=== PATIENT | female | born 1935 | race Caucasian/White ===

== ENCOUNTER 2023-07-09 10:06 | Emergency (ER) | payer MEDICARE, SELFPAY ==
--- NOTE | 2023-07-09 10:00 | DI.RAD_ITS ---
Exam(s) XR WRIST LT COMPLETE EXAM: XR WRIST LT COMPLETE CLINICAL HISTORY: Left wrist pain status post fall. TECHNIQUE: 2D digital imaging was performed. Three views. COMPARISON: No exams were available for comparison FINDINGS: BONES: A nondisplaced fracture is seen extending transversely through the distal radial metaphysis. No visible separation at the articular surface. No significant angulation. The distal ulna and carp al bones appear intact. No bony destructive lesion is seen. The bones appear osteopenic. JOINTS: The carpal bones are normally aligned. Degenerative changes in the carpal region, greatest at the 1st carpal metacarpal joint. SOFT TISSUE: swelling around the wrist. IMPRESSION: Nondisplaced distal radial fracture DATA REPOSITORY: RADIATION DOSE DELIVERED:
--- NOTE | 2023-07-09 10:08 | W.ED.GENAD ---
Discharge Plan Disposition Patient Disposition: Home Discharge Details Clinical Impression: Closed fracture of distal end of left radius Primary Care Provider: None,None ED Provider: Fredy Bob Home Meds and New Rx's Prescriptions: New tramadol 50 mg tablet 50 mg PO QHS Qty: 3 0RF Discharge Instructions Instructions: Wrist Fracture in Adults (ED) Additional Instructions: Please read all of the information that accompanies these instructions. You were seen in the emergency department for your wrist pain. You are found to have a wrist fracture. The orthopedic team will call you for follow-up in 1 week. Please return to the emergency department if numbness or tingling in her hand or loose feeling completely in her hand. For your pain please take medications as follows: 1. Take acetaminophen (Tylenol), 1,000 mg (two 500 mg tabs) every 8 hours You have also received a prescription for tramadol which you should take in the evening as needed. Medical Decision Making This is an overall very well-appearing normothermic and not tachycardic znceu-fslk-klqimpif female with left wrist pain swelling concerning for fracture for which patient will undergo plain films. Patient is not wearing any rings at the moment on her left hand. She had no preceding chest pain dizziness or shortness of breath and given his syncope will defer secondary evaluation at this point time. She did not hit her head so no indication for CT head. She has not been nauseous nor vomiting so my suspicion for any acute electrolyte abnormalities is exceedingly low so we will defer laboratory evaluation. Per Nexus criteria, cervical CT not obtained. The patient had no c-spine midline tenderness, no evidence of intoxication, was AAOx3, had no focal neurological deficits, and no painful distracting injuries. Hand is warm and well-perfused so not concern for any vascular insult. Nontender shoulder so not concern for shoulder dislocation. Patient is on aspirin but not anticoagulation and as result we will defer ibuprofen and treat pain with 1 g of acetaminophen. 10:53 AM I spoke with Dr. Marin from orthopedics who reviewed the patient's plain films which were notable for a nondisplaced distal left radial fracture. He advised a Velcro brace at 1 to 2-week interval orthopedic follow-up. I will ask health self contained behavior unit teacher Nori to have the patient seen in 1 to 2 weeks by orthopedics. Will advise acetaminophen as needed for pain control. Patient reported that she had taken tramadol in the past and as result we will send patient with 3 tramadol tablets. Chronic conditions affecting the care of the patient: Ortiz cirrhosis & Crohn's disease History obtained from an outside historian: Daughter External [place] [facility] [place] Medications: Acetaminophen Social determinants of health affecting disposition: N/A Management discussed with: Dr. Marin from orthopedics Treatment/interventions considered: Splinting but deferred based on recommendation from orthopedics Response to therapies provided: Improved pain and removable wrist brace HPI General Date/Time Provider Initiated Documentation: 07/09/23 10:08. HPI Narrative: This is a [id number] 87-year-old female vacationing in the area arriving via private vehicle following a fall. Patient was reportedly going into the bathroom. She reports that she generally feels somewhat unsteady in the morning. She reports that she attempted to support herself by grabbing onto the shower curtain. She subsequently fell. She is having pain in her left wrist. She did not strike her head. She did not lose consciousness. She had no preceding dizziness chest pain or shortness of breath. She was in her usual state of health last night. Chart review indicates that she has a history of Ortiz cirrhosis. Related Data Home Medications Medication Instructions Recorded Confirmed tramadol 50 mg tablet 50 mg PO QHS #3 tabs 07/09/23 Previous Rx's Medication Instructions Recorded tramadol 50 mg tablet 50 mg PO QHS #3 tabs 07/09/23 Allergies Allergy/AdvReac Type Severity Reaction Status Date / Time No Known Allergies Allergy Unverified 07/09/23 10:14 [facility] All Active Problems (Updated 07/09/23 @ 10:50 by Fredy Bob MD) Closed fracture of distal end of left radius (Acute) Social History Smoking/Tobacco Use Status: Never Smoking risk assessment performed?: Yes Alcohol Intake: never Substance use type: does not use Housing: house Do you feel safe at home: Yes Do you feel safe in your relationship?: Yes Exam Narrative Exam Narrative: General: Well-appearing in no acute distress speaking in complete sentences. Head: Normocephalic, atraumatic. Eye: Extraocular eye movements intact. No conjunctival injection. No scleral icterus. Ear, nose, mouth, throat: Grossly normal inspection. Normal voice, handling secretions normally. Neck: Trachea midline. No midline cervical spinal tenderness. Cardiovascular: Well-perfused distal extremities. Regular rate and rhythm Respiratory: Nonlabored respiration. Clear lungs bilaterally. Gastrointestinal: Nondistended abdomen. Musculoskeletal: No edema. Left upper extremity with swelling on the dorsal aspect of the distal left forearm at the wrist. Patient has decreased ability to pronate and supinate. 2+ left radial pulse. Sensation and motor function intact in the left hand across the radial, median, and ulnar nerve distributions. Proximal left forearm nontender. Full range of motion left elbow which is also not tender. No upper arm tenderness on the left. No shoulder tenderness on the left. Skin: Normal for age and race, grossly normal temperature and turgor. No acute rash. Neurologic: Alert and appropriate, no apparent acute deficits. Psychiatric: Mood and manner are appropriate. Grooming and personal hygiene are appropriate.
[2023-07-09 10:10] VITALS: BP 151/57; PULSE 69; RESP 16; TEMP 36.7; O2SAT 96
[2023-07-09] MEDS: Acetaminophen 500 MG TAB 1000 MG PO (10:36)
--- NOTE | 2023-07-14 16:33 | NUR.NOTE ---
Addendum entered by Concepción Moore 07/14/23 16:34: faxed number [phone] Original Note: faxed doctors not and xray to ortho in [place] for follow up, pt requestNursing Note:
== END 2023-07-09 11:28 | disposition home or self-care (01) ==
PROVIDERS: Emergency Provider Emergency Medicine
DX: S52.502A Unspecified fracture of the lower end of left radius, initial encounter for closed fracture (principal); W18.2XXA Fall in (into) shower or empty bathtub, initial encounter
CPT/HCPCS: 99284; 73110; 99283